=== PATIENT | male | born 1945 | race Caucasian/White ===

== ENCOUNTER 2016-12-21 10:16 | Emergency (ER) | payer OTHER ==
[~2016-12-21] VITALS: Ht 177.8 cm; Wt 86.2 kg
[2016-12-21] MEDS ORDERED: FOSRENOL500 MG PO (10:33)
[2016-12-21] MEDS ORDERED: APR50 PO (10:34)
[2016-12-21] MEDS ORDERED: SERTRALINE100 M1 PO (10:34)
[2016-12-21] MEDS ORDERED: CORE25 PO (10:35)
[2016-12-21] MEDS ORDERED: RENAL VITAMIN0.8 MG (10:35)
[2016-12-21] MEDS ORDERED: ZOF4 PO (10:36)
[2016-12-21] MEDS ORDERED: ALPHAGAN P5 M1 OD (10:37)
[2016-12-21] MEDS ORDERED: PRED FORTE1 ML (10:38)
[2016-12-21] MEDS ORDERED: NITROSTAT0.4 MG SL (10:38)
[2016-12-21] MEDS ORDERED: GLIPIZIDE5 M2 PO (10:39)
[2016-12-21] MEDS ORDERED: GABAPENTIN100 M2 PO (10:39)
[2016-12-21] MEDS ORDERED: CRESTOR40 M1 PO (10:39)
[2016-12-21] MEDS ORDERED: TERAZOSIN HCL2 MG PO (10:40)
[2016-12-21] MEDS ORDERED: FINASTERIDE5 M1 PO (10:40)
[2016-12-21] MEDS ORDERED: ASPIRIN EC325 M1 PO (10:40)
[2016-12-21] MEDS ORDERED: ISOSORBIDE MONO60 MG PO (10:40)
[2016-12-21] MEDS ORDERED: DEPLUD PO (10:41)
[2016-12-21 12:40] VITALS: BP 119/78
== END 2016-12-21 12:40 | disposition home or self-care (01) ==
LOC: ED 10:16
DX: S01.81XA Laceration without foreign body of other part of head, initial encounter (principal); S01.21XA Laceration without foreign body of nose, initial encounter; N18.9 Chronic kidney disease, unspecified; I12.9 Hypertensive chronic kidney disease with stage 1 through stage 4 chronic kidney disease, or unspecified chronic kidney disease; F03.90 Unspecified dementia, unspecified severity, without behavioral disturbance, psychotic disturbance, mood disturbance, and anxiety; Z99.2 Dependence on renal dialysis; W01.0XXA Fall on same level from slipping, tripping and stumbling without subsequent striking against object, initial encounter; Y93.89 Activity, other specified; Y99.8 Other external cause status; Y92.89 Other specified places as the place of occurrence of the external cause

== ENCOUNTER 2018-08-02 00:59 | Emergency (ER) | payer OTHER ==
[~2018-08-02] VITALS: Ht 177.8 cm; Wt 79.4 kg
[~2018-08-02 00:59] MED LIST: ALPHAGAN P5 M1 OD; APR50 PO; ASPIRIN EC325 M1 PO; CORE25 PO; CRESTOR40 M1 PO; DEPLUD PO; FINASTERIDE5 M1 PO; FOSRENOL500 MG PO; GABAPENTIN100 M2 PO; GLIPIZIDE5 M2 PO; ISOSORBIDE MONO60 MG PO; NITROSTAT0.4 MG SL; PRED FORTE1 ML; RENAL VITAMIN0.8 MG; SERTRALINE100 M1 PO; TERAZOSIN HCL2 MG PO; ZOF4 PO
[2018-08-02 01:05] VITALS: Ht 177.8 cm; Wt 79.4 kg
[2018-08-02] MEDS ORDERED: CLEOCIN HCL150 MG PO (01:47)
[2018-08-02 01:55] LABS: BASOPHIL % 0.4 % (0-2); PLATELET COUNT 133 x10^3mcL (130-400); RED CELL DISTRIBUTION WIDTH 13.1 % (11.5-14.5)
[2018-08-02 02:10] LABS: ALKALINE PHOSPHATASE 112 U/L (46-116); AST/SGOT 27 U/L (15-37); BILIRUBIN TOTAL 0.34 mg/dL (0.20-1.00); CALCIUM 8.3 mg/dL (8.5-10.1); CARBON DIOXIDE 29.6 mmol/L (21-32); CHLORIDE SERUM 97 mmol/L (98-107); GLUCOSE SERUM 99 mg/dL (74-106); POTASSIUM SERUM 3.4 mmol/L (3.5-5.1); SODIUM SERUM 132 mmol/L (136-145); TOTAL PROTEIN, SERUM 6.8 g/dL (6.4-8.2)
[2018-08-02 02:20] LABS: ALT/SGPT 20 U/L (16-63)
[2018-08-02 02:21] LABS: CK-MB < 0.5 ng/mL (0-3.6); CREATINE KINASE 208 U/L (39-308)
[2018-08-02 04:03] VITALS: BP 164/62
== END 2018-08-02 04:03 | disposition home or self-care (01) ==
LOC: ED 00:59
PROVIDERS: Emergency Medicine
DX: J11.1 Influenza due to unidentified influenza virus with other respiratory manifestations (principal); I10 Essential (primary) hypertension; F03.90 Unspecified dementia, unspecified severity, without behavioral disturbance, psychotic disturbance, mood disturbance, and anxiety; Z86.73 Personal history of transient ischemic attack (TIA), and cerebral infarction without residual deficits; Z99.2 Dependence on renal dialysis; W18.39XA Other fall on same level, initial encounter; Y93.89 Activity, other specified; Y92.89 Other specified places as the place of occurrence of the external cause; Y99.8 Other external cause status
CPT/HCPCS: 36415; 82962; 87804

== ENCOUNTER 2019-01-07 13:25 | Emergency (ER) | payer OTHER ==
[~2019-01-07] VITALS: Ht 177.8 cm; Wt 95.3 kg
[~2019-01-07 13:25] MED LIST changes: +CLEOCIN HCL150 MG PO
[2019-01-07 13:53] VITALS: Ht 177.8 cm; Wt 95.3 kg
[2019-01-07 16:17] VITALS: BP 124/75
== END 2019-01-07 16:17 | disposition home or self-care (01) ==
LOC: ED 13:25
DX: S16.1XXA Strain of muscle, fascia and tendon at neck level, initial encounter (principal); S60.222A Contusion of left hand, initial encounter; S20.212A Contusion of left front wall of thorax, initial encounter; S70.02XA Contusion of left hip, initial encounter; I10 Essential (primary) hypertension; F03.90 Unspecified dementia, unspecified severity, without behavioral disturbance, psychotic disturbance, mood disturbance, and anxiety; W18.39XA Other fall on same level, initial encounter; Y93.89 Activity, other specified; Y92.89 Other specified places as the place of occurrence of the external cause; Y99.8 Other external cause status

== ENCOUNTER 2019-03-05 10:23 | Inpatient (IN) | payer OTHER ==
[~2019-03-05] VITALS: Ht 177.8 cm; Wt 93.0 kg
--- NOTE | 2019-03-05 10:42 | NUR ---
DR. WEEKS MADE AWARE OF THE BP.
[2019-03-05 11:20] LABS: BASOPHIL % 0.4 % (0-2); PLATELET COUNT 133 x10^3mcL (130-400); RED CELL DISTRIBUTION WIDTH 14.5 % (11.5-14.5)
[2019-03-05 11:43] LABS: ALKALINE PHOSPHATASE 71 U/L (46-116); ALT/SGPT 11 U/L (16-63); AST/SGOT 5 U/L (15-37); BILIRUBIN TOTAL 0.51 mg/dL (0.20-1.00); C REACTIVE PROTEIN 8.5 mg/dL (<=0.9); CALCIUM 9.1 mg/dL (8.5-10.1); CARBON DIOXIDE 34.8 mmol/L (21-32); CHLORIDE SERUM 97 mmol/L (98-107); GLUCOSE SERUM 171 mg/dL (74-106); POTASSIUM SERUM 4.4 mmol/L (3.5-5.1); SODIUM SERUM 138 mmol/L (136-145); TOTAL PROTEIN, SERUM 7.3 g/dL (6.4-8.2)
[2019-03-05 11:44] LABS: ALBUMIN 3.1 g/dL (3.4-5.0)
[2019-03-05 11:45] LABS: CREATININE SERUM 7.8 mg/dL (0.7-1.3)
[2019-03-05 12:56] LABS: ERYTHROCYTE SED RATE 50 mm/hr (0-20)
[2019-03-05 13:27] LABS: CHOLESTEROL/HDL RATIO 2.8
--- NOTE | 2019-03-05 13:54 | NUR ---
RECEIVED REPORT FROM YAA GREENWOOD IN ED. AWAITING PATIENT ARRIVAL TO FLOOR.
--- NOTE | 2019-03-05 14:07 | NUR ---
REPORT GIVEN TO FLOOR ENVELOPE MACHINE OPERATOR HARMONY PT REMAINS STABLE UPON REPORT GIVEN IV INTACT FLUSHING WELL FAMILY AT BEDSIDE NO S/S OF DISTRESS PIC TAKEN OF RIGHT FOOT WOUND OPEN TO AIR.
--- NOTE | 2019-03-05 14:20 | NUR ---
REPORT GIVEN TO ICU ROOM 4 TIMO ARREDONDO PHOTOS COMPLETED FOR FOOT IV REMAINS INTACT TO RIGHT ARM FLUSHING WELL NO S/S OF DISTRESS BELONGING LIST COMPLETE AND WACTCH SENT WITH FAMILY VITALS REMAIN IN THE 90'S WITH NO S/S OF DISTRESS,FAMILY REMAINS AT BEDSIDE GOING UP WITH LOADING UNIT OPERATOR POWDER CHARGING AND STAFF
--- NOTE | 2019-03-05 14:34 | NUR ---
TRANSFERED TO [facility] AT THIS TIME WITH RN AND TECH
--- NOTE | 2019-03-05 14:40 | NUR ---
RECEIVED PATIENT FROM ED VIA GUERNEY ACCOMPANIED BY RN. PATIENT SLID TO BED AND VITALS TAKEN. BP 132/69, HR 67, O2 100% ON ROOM AIR, RR 10, T 98.1 NO C/O SOB AND NO DISTRESS NOTED. IV TO RAC IS PATENT AND INTACT. NO REDNESS OR PAIN. TELE LEADS APPLIED. NO C/O CHEST PAIN. PICTURES TAKEN OF RT FOOT. MRSA AND WOUND CULTURE OBTAINED. ORIENTED PATIENT TO ROOM. ALL QUESTIONS AND CONCERNS ADDRESSED.
--- NOTE | 2019-03-05 15:02 | NUR ---
DR YEAGER IN TO SEE PATIENT AND ASSESS AND DRESS WOUND.
[2019-03-05 15:17] VITALS: BP 132/54
--- NOTE | 2019-03-05 16:11 | NUR ---
ULTRASOUND IN TO SEE PATIENT.
--- NOTE | 2019-03-05 17:38 | NUR ---
PT BP ELEVATED 165/69. IN TO ADMINISTER SCHEDULED MEDICATION (SEE EMAR).
--- NOTE | 2019-03-05 19:03 | NUR ---
REPORT GIVEN TO STACIE GREENWOOD. PATIENT SLEEPING COMFORTABLY IN BED WITH ALL NEEDS MET. PATIENT ON ROOM AIR WITH NO DISTRESS NOTED. ALL QUESTIONS ADDRESSED. ALL CARES ENDORSED.
--- NOTE | 2019-03-05 19:15 | NUR ---
RECIEVED REPORT FROM TIMO ARREDONDO. NURSING UPDATES. POC DISCUSSED. RESUMED CARE OF PT. SEE SHIFT ASSESSMENT FOR ASSESSMENT.
[2019-03-05 19:36] VITALS: BP 118/51
--- NOTE | 2019-03-05 20:45 | NUR ---
DR BENÍTEZ @ BEDSIDE NURSING UPDATES. POC DISCUSSED. NO NEW ORDERS @ THIS TIME.
[2019-03-05 23:10] VITALS: BP 145/58
--- NOTE | 2019-03-06 | NUR ---
PT RESTING CALMLY IN BED @ THIS TIME. DENIES ANY CHANGES. NO ACUTE CHANGES NOTED. WILL CONT TO MONITOR.
--- NOTE | 2019-03-06 02:24 | NUR ---
PT RESTING CALMLY IN BED. NO ACUTE CHANGES. WILL CONT TO MONITOR.
[2019-03-06 03:33] VITALS: BP 127/53
--- NOTE | 2019-03-06 04:13 | NUR ---
PT USED BEDSIDE COMMODE STATING THAT HE HAD TO GO TO THE BATHROOM. PT ABLE W/ ASSISTANCE TO BEDSIDE COMMODE STABLE W/ NO ISSUE. PT VOIDED 100ML GALILEA BROWN. WILL ENDORSE.
--- NOTE | 2019-03-06 04:15 | NUR ---
PT LINENS CHANGED, BEDDING, AND CLOTHING CHANGED. PT TOLERATED WELL. WILL CONT TO MONITOR. PT COMPLIANT AND STABLE. NO ACUTE CHANGES. WILL ENDORSE.
[2019-03-06 05:14] LABS: BASOPHIL % 1.1 % (0-2); PLATELET COUNT 129 x10^3mcL (130-400); RED CELL DISTRIBUTION WIDTH 14.3 % (11.5-14.5)
[2019-03-06 05:30] LABS: CALCIUM 9.5 mg/dL (8.5-10.1); CHLORIDE SERUM 95 mmol/L (98-107); CREATININE SERUM 8.4 mg/dL (0.7-1.3); GLUCOSE SERUM 103 mg/dL (74-106); MAGNESIUM 2.8 mg/dL (1.8-2.4); PHOSPHOROUS 5.2 mg/dL (2.5-4.9); POTASSIUM SERUM 4.7 mmol/L (3.5-5.1); SODIUM SERUM 138 mmol/L (136-145)
--- NOTE | 2019-03-06 07:00 | NUR ---
REPORT RECEIVED FROM STACIE GREENWOOD. PT FOUND RESTING IN BED, BED IN LOWEST POSITION, BED WHEELS LOCKED, HOB @ 30 DEGREES. NO S/S DISTRESS. PT AWAKENS TO VOICE, ORIENTED TO SELF ONLY. HR 53, BP 125/57, RR 12, SPO2 100% ON ROOM AIR. LUNG SOUNDS CLEAR BILATERALLY, S1 S2 PRESENT ON CARDIAC AUSCULTATION, NS INFUSING TO RAC IV. IV SITE WNL. PT DENIES PAIN. WILL CONTINUE TO MONITOR.
[2019-03-06 07:54] VITALS: BP 125/57
[2019-03-06 11:54] VITALS: BP 120/44
--- NOTE | 2019-03-06 11:55 | NUR ---
PATIENT RECEIVED FROM ROGER GREENWOOD, TRANSFER FROM ICU. PATIENT WAS BROUGHT IN BY WHEELCHAIR. PATIENT ABLE TO AMBULATE FROM WHEELCHAIR TO BED WITH ASSISTANCE. PATIENT A/O X4 IN GOOD SPIRITS. NO COMPLAINT OF PAIN AT THIS TIME. PATIENT COMPLAINING OF BLURRY VISION AT THIS TIME, STATED THAT THIS HAS BEEN HAPPENING FOR WEEKS, HX OF CORNEA TRANSPLANT. PATIENT HAS DRESSING TO RIGHT FOOT, REPORT OF 4TH TOE AMPUTATION TO RIGHT FOOT, CELLULITUS TO RIGHT FOOT. IV TO RIGHT AC WITH NS AT TKO RATE, LEFT FORARM FISTULA FOR HD (T,TH,S), LIMB ALERT BRACELET IN PLACE. ORIENTED PATIENT TO CALL LIGHT SYSTEM AND INSTRUCTED TO USE CALL LIGHT IF ASSISTANCE IS NEEDED
--- NOTE | 2019-03-06 12:45 | NUR ---
ADMINSTERED MEDICATIONS PER MAR. ENCOURAGED PATIENT TO EAT LUNCH. PATIENT WAS ASSISTED TO RESTROOM BY CLIENT PROGRAM MANAGER FOR BOWEL MOVEMENT. CALL LIGHT IS WITHIN REACH OF PATIENT ON BED
--- NOTE | 2019-03-06 12:59 | NUR ---
DR YEAGER, PODIATRY HERE TO SEE PATIENT
--- NOTE | 2019-03-06 17:45 | NUR ---
ADMINISTERED MEDICAITON PER SEP. FAMILY DEPARTED FOR THE DAY. PATIENT ENCOURAGED TO EAT DINNER, STATED HE DID NOT FEEL HUNGRY
[2019-03-06 17:49] VITALS: BP 139/65
--- NOTE | 2019-03-06 19:35 | NUR ---
RECEIVED REPORT FROM AM NURSE. PT LAYING DOWN IN BED. PT AAOX4 AT THIS TIME. HX OF DEMENTIA.FOLLOW COMMANDS. ABLE TO MAKE NEEDS KNOWN. PT ON TELE#17 [address] SR. DENIES CP/PRESSURE AT THIS TIME. PEDAL PULSES WEAK TO BLE. NO EDEMA NOTED. LUNG SOUNDS CTA. BREATHING EVEN AND UNLABORED ON RA. NO SOB NOTED. NO ACUTE DISTRESS NOTED. ABD SOFT AND NONDISTEDED. ACITIVE BS X4 QUAD. DENIES N/V. ASSITED PT TO RESTROOM. HAD A EPISODE OF LOOSE STOOL. WILL MONITOR FOR DIARRHEA. ON HD. INCONTINENT TO URINE. RIGHT SIDE WEAKNESS. WOUND TO RIGHT 4RD TOE, RIGHT 4RD TOE AMPUTATION COVERED WITH DRESSING. DRESSING CDI. IV TO RAC FLUSHING WELL. SITE STEVAN FROM REDNESS AND SWELLING. BED AT LOWEST SETTING. SIDE RAILS X2 UP. CALL LIGHT WITHING REACH. WILL CONTINUE TO MONITOR.
[2019-03-06 21:10] VITALS: BP 102/44
[2019-03-07] VITALS (7 sets, daily range): BP systolic 107–142; BP diastolic 45–61
--- NOTE | 2019-03-07 00:36 | NUR ---
PT LAYING DOWN IN BED WITH EYES CLOSED. BREATHING EVEN AND UNLABORED ON RA. NO ACUTE DISTRESS NOTED. BED AT LOWEST SETING. SIDE RAILS X2 UP. CALL LIGHT WITHING REACH. WILL CONTINUE TO MONITOR.
--- NOTE | 2019-03-07 06:10 | NUR ---
PT BS 49, RECHECKED IT WAS 49. PT ASYPTOMATIC. DENIES H/A OR DIZZINESS. PRN D50 IV GIVEN PER SEP. RECHECKED BS, CURRENT BS 123. PT IN NO ACUTE DISTRESS. BREATHING EVEN AND UNLABORED ON RA. ALL NEEDS ASSESSED AND ATTENDED TO. BED AT LOWEST SETTING. SIDE RAILS X2 UP. CALL LIGHT WITHING REACH. WILL ENDORSE CARE TO AM NURSE.
[2019-03-07 06:35] LABS: BASOPHIL % 0.4 % (0-2); PLATELET COUNT 133 x10^3mcL (130-400)
[2019-03-07 06:51] LABS: RED CELL DISTRIBUTION WIDTH 14.6 % (11.5-14.5)
[2019-03-07 07:04] LABS: CALCIUM 8.8 mg/dL (8.5-10.1); CHLORIDE SERUM 97 mmol/L (98-107); GLUCOSE SERUM 130 mg/dL (74-106); MAGNESIUM 2.6 mg/dL (1.8-2.4); PHOSPHOROUS 5.6 mg/dL (2.5-4.9); POTASSIUM SERUM 4.6 mmol/L (3.5-5.1); SODIUM SERUM 138 mmol/L (136-145)
--- NOTE | 2019-03-07 08:00 | NUR ---
ABLE TO FEED SELF WITH CCHO DIET. NO ASPIRATION NOTED.
--- NOTE | 2019-03-07 08:30 | NUR ---
ASSISTED TO BATHROOM NOTED WITH UNSTEADY GAIT TO RLE, NO ANY DISTRESS NOTED, ASSISTED BACK BY MUD ANALYSIS OPERATOR.
--- NOTE | 2019-03-07 09:50 | NUR ---
AM SCHEDULED MEDS GIVEN. NO ASPIRATION NOTED. PLAN OF CARE DISCUSSED. PATIENT VERBALIZED UNDERSTANDING.
--- NOTE | 2019-03-07 15:50 | NUR ---
HEMODIALYSIS ONGOING AT BEDSIDE AT THIS TIME. DSRG TO RIGHT FOOT CHANGED BY DOCTOR DAY. PATIEN RESTING WITHOUT ANY DISTRESS NOTED AT THIS TIME.
--- NOTE | 2019-03-07 16:20 | NUR ---
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
--- NOTE | 2019-03-07 16:40 | NUR ---
WOUND CULTURE IS POSITVE FOR MORGANELLA MORGANI, DOCTOR DAY MADE AWARE. NOTED NEW ORDER FOR MERREM IV Q 12HRS AND DISCONTINUED CLEOCIN FROM SHELBY BOYD.
--- NOTE | 2019-03-07 18:19 | NUR ---
HEMODIALYSIS DONE WITH 2 LITETS NET OUPUT. DENIES PAIN OR DISCOMFORT AT THIS TIME. [facility], PATIENT TOLERATING WELL, NO ASPIRATION NOTED. V/S BP 107/50, HR 66, RR 18, O2SAT 96% ON ROOM AIR, AFEBRILE. IVPB LEVAQUIN INFUSING TO RAC IV SITE, NO LEAKING OR SWELLING TO SITE. CALL LIGHT REINSTRUCTED AND PLACED WITHIN EASY REACH. SIDERAILS UP X2 WITH BED ALARM ON.
--- NOTE | 2019-03-07 18:45 | NUR ---
PATIENT AMBULATED TO BATHROOM HAD ACCIDENT ON THE FLOOR NOTED LARGE LOOSE BM IN FRONT OF THE BATHROOM. ASSISTED TO SIT ON THE TOILET. NO ANY DISTRESS NOTED. ASSISTED BACK TO BED AFTER HAD BM. REMINDED PATIENT TO USE CALL LIGHT TO CALL FOR HELP. PATIENT VERBALIZED UNDERSTANING. BED ALARM ON. SIDERAILS UP X2.
--- NOTE | 2019-03-07 19:25 | NUR ---
PT RECEIVED A/O X4, WITH EPISODES OF FORGETFULNESS, ABLE TO MAKE NEEDS KNOWN. TELE #17, DENIES ANY CP/RPESSURE. WEAK PEDAL PULSES, NO EDEMA PRESENT. BREATHING IS EVEN AND UNLABORED ON RA, DENIES SOB, NO RESP DISTRESS NOTED. ABD SOFT AND NONDISTENDED, BOWEL TONES ACTIVE X4, DENIES N/V. VOIDS FREELY, MAY HAVE EPISODES OF URINARY INCONTINENCE, BRP WITH ASSIST. PT ON HD , TH, SAT. LAST HD TODAY, WITH 2L OUTPUT PER AM NURSE. AV SHUNT TO LFA, WITH GOOD BRUIT AND THRILL, DRSG IN PLACE, CDI. HX OF CVA WITH RT-SIDED WEAKNESS NOTED. AMBULATORY WITH ASSIST, BED ALARM ON. DRSG IN PLACE TO RT FOOT, CDI; DRSG CHANGED BY PODIATRY TEAM DURING AM SHIFT. PT DENIES HAVING ANY PAIN AT THIS TIME. IV TO RAC, PATENT AND INTACT, SITE WNL. NO ACUTE DISTRESS NOTED. BED IN LOWEST SETTING, SIDE RAILS UP X2, CALL LIGHT WITHIN REACH. WILL CONT TO MONITOR.
--- NOTE | 2019-03-08 00:52 | NUR ---
PT RESTING IN BED WITH EYES CLOSED, BUT IS EASILY AROUSABLE. BREATHING IS EVEN AND UNLABORED, NO RESP DISTRESS NOTED. PT DENIES HAVING ANY PAIN AT THIS TIME. IV INTACT, NO ACUTE DISTRESS OBSERVED. CALL LIGHT WITHIN REACH. WILL ENDORSE CARE TO AM NURSE.
--- NOTE | 2019-03-08 00:52 | NUR ---
PT RESTING IN BED WITH EYES CLOSED, BUT IS EASILY AROUSABLE. BREATHING IS EVEN AND UNLABORED, NO RESP DISTRESS NOTED. PT DENIES HAVING ANY PAIN AT THIS TIME. IV INTACT, NO ACUTE DISTRESS OBSERVED. BED ALARM ON. CALL LIGHT WITHIN REACH. WILL CONT TO MONITOR.
[2019-03-08 05:47] VITALS: BP 139/55
--- NOTE | 2019-03-08 06:19 | NUR ---
PT SLEPT WELL THROUGHOUT THE EVENING. BREATHING IS EVEN AND UNLABORED, NO RESP DISTRESS NOTED. PT DENIES HAVING ANY PAIN AT THIS TIME. NO ACUTE CHANGES ENCOUNTERED DURING SHIFT. ALL NEEDS MET AND ANTICIPATED. PT COMPLIANT WITH NURSING CARE. IV TO RFA INTACT. BED ALARM ON. CALL LIGHT WITHIN REACH. WILL ENDORSE CARE TO AM NURSE.
[2019-03-08 06:21] LABS: BASOPHIL % 0.5 % (0-2); PLATELET COUNT 143 x10^3mcL (130-400)
[2019-03-08 06:30] LABS: RED CELL DISTRIBUTION WIDTH 14.6 % (11.5-14.5)
[2019-03-08 06:45] LABS: CALCIUM 8.9 mg/dL (8.5-10.1); CARBON DIOXIDE 31.6 mmol/L (21-32); CHLORIDE SERUM 102 mmol/L (98-107); GLUCOSE SERUM 78 mg/dL (74-106); POTASSIUM SERUM 4.2 mmol/L (3.5-5.1); SODIUM SERUM 144 mmol/L (136-145)
[2019-03-08 06:57] LABS: CREATININE SERUM 6.9 mg/dL (0.7-1.3)
--- NOTE | 2019-03-08 07:05 | NUR ---
RECEIVED BEDSIDE REPORT FROM EXHIBITS CURATOR NURSE AT THIS TIME. PATIENT RESTING COMFORTABLY IN BED. NO APPARENT DISTRESS OR DISCOMFORT NOTED. BREATHING EVEN AND UNLABORED. PATIENT DENIES SHORTNESS OF BREATH. PATIENT DENIES CHEST PAIN/PRESSURE. DRESSING NOTED TO RIGHT FOOT, CDI. IV PATENT AND INTACT, SALINE LOCKED. ALL QUESTIONS AND CONCERNS ADDRESSED. ALL NEEDS ATTENDED TO. WILL CONTINUE TO MONITOR
--- NOTE | 2019-03-08 07:19 | NUR ---
PT IN NO ACUTE DISTRESSED. CONTINUITY OF CARE ENDORSED TO KEVIN GREENWOOD. ALL QUESTIONS AND CONCERNS ADDRESSED.
[2019-03-08] MEDS ORDERED: LEVAQUIN750 MG IV (09:42)
[2019-03-08 10:21] VITALS: BP 115/45
[2019-03-08 10:23] VITALS: Ht 177.8 cm; Wt 93.0 kg
--- NOTE | 2019-03-08 10:36 | NUR ---
PATIENT RECEIVED MORNING MEDICATIONS. PATIENT TOLERATED MEDICATIONS WELL. NO APPARENT ADVERSE EFFECTS NOTED. ALL NEEDS ATTENDED TO. WILL CONTINUE TO MONITOR
--- NOTE | 2019-03-08 12:00 | NUR ---
PATIENT BLOOD SUGAR 96. NO INSULIN COVERAGE REQUIRED. ALL NEEDS ATTENDED TO. WILL CONTINUE TO MONITOR
[2019-03-08 13:51] VITALS: BP 125/79
[2019-03-08 17:19] VITALS: BP 98/42
--- NOTE | 2019-03-08 19:10 | NUR ---
REPORT RECEIVED FROM DAY SHIFT RN. PATIENT WAS SEEN AND IS RESTING COMFORTABLY IN BED. A/OX2 TO PERSON AND TIME. CONFUSED. NO DISTRESS NOTED. BREATHING EVEN AND UNLABORED ON ROOM AIR. NO SOB OR RESP DISTRESS NOTED. NO C/O PAIN. DENIES CHEST PAIN/PRESSURE. IV TO THE RIGTH WRIST. SALINE LOCK. PATENT AND INTACT. NO REDNESS OR SWELLING NOTED. RIGHT FOOT DRESSING IN PLACE, CDI. NO DRAINAGE OR ODOR NOTED. KLETSEL DEHE WINTUN AND POOR VISION BILATERALLY. LFA AV SHUNT IN PLACE AND WNL. COMFORT AND SAFETY MEASURES IN PLACE. BED IS LOCKED AND IN THE LOWEST POSITION. SIDE RAILS UP X2. EDUCATED PATIENT TO CALL FOR ASSISTANCE AND TO NOT GET OUT OF BED ALONE. BED ALARM ON. CALL LIGHT IS WITHIN REACH. WILL CONTINUE TO MONITOR.
--- NOTE | 2019-03-08 19:42 | NUR ---
PATIENT RESTING COMFORTABLY IN BED AT THIS TIME. NO APPARENT DISTRESS OR DISCOMFORT NOTED. IV PATENT AND INTACT. ALL QUESTIONS AND CONCERNS ADDRESSED. ALL NEEDS ATTENDED TO. SAFETY PRECAUTIONS MAINTAINED. ENDORSED ALL CARE TO ZOOKEEPER NURSE
[2019-03-08 20:38] VITALS: BP 126/57; BP 226/57
--- NOTE | 2019-03-08 21:20 | NUR ---
GAVE PATIENT SANDWICH PER REQUEST. MADE PATIENT COMFORTABLE IN BED. NO DISTRESS NOTED. NO C/O PAIN. BREATHING EVEN AND UNLABORED. SAFETY MEASURES IN PLACE. CALL LIGHT IS WITHIN REACH. WILL CONTINUE TO MONITOR.
--- NOTE | 2019-03-09 00:46 | NUR ---
RESTING IN BED WITH EYES CLOSED. NO DISTRESS NOTED. BREATHING EVEN AND UNLABORED ON ROOM AIR. NO SOB NOTED. EVEN AND SYMMETRIC CHEST RISE AND FALL. SAFETY MEASURES IN PLACE. CALL LIGHT IS WITHIN REACH. WILL CONTINUE TO MONITOR.
[2019-03-09 05:08] VITALS: BP 135/47
--- NOTE | 2019-03-09 05:46 | NUR ---
BS 51 AND REPEATED AT 63. PATIENT DENIES S/S OF HYPOGLYCEMIA. NO DISTRESS NOTED. GAVE PATIENT APPLE JUICE X2 WITH 2 PACKETS OF SUGAR AND A SANDWICH. WILL REASSESS BS. CALL LIGHT IS WITHIN REACH. WILL CONTINUE TO MONITOR.
--- NOTE | 2019-03-09 06:12 | NUR ---
BS NOW 61 AND REPEATED 62. APPLE JUICE X2 W/ 2 SUGAR PACKETS AND SANDWICH WAS NOT EFFECTIVE. D50 ADMINISTERED PRESCRIBED. WILL REASSESS BS. NO DISTRESS NOTED. BREATHING EVEN. CALL LIGHT IS WITHIN REACH. WILL CONTINUE TO MONITOR.
--- NOTE | 2019-03-09 06:36 | NUR ---
AFTER D50, BS 209. WILL NOTIFY DR CARBAJAL. NO INSULIN GIVEN AT THIS TIME.
--- NOTE | 2019-03-09 06:41 | NUR ---
PATIENT RESTED IN LONG INTERVALS THROUGHOUT THE NIGHT. NO ACUTE CHANGES NOTED. BREATHING EVEN AND UNLABORED ON ROOM AIR. NO DISTRESS NOTED. NO C/O PAIN THROUGHOUT THE NIGHT. DENIES CHEST PAIN/PRESSURE. IV TO THE RIGHT WRIST. SALINE LOCK. PATENT AND INTACT. NO REDNESS OR SWELLING NOTED. RIGHT FOOT DRESSING, CDI. A/OX2 FORGETFUL. ALL NEEDS AND CONCERNS ADDRESSED. SAFETY MEASURES IN PLACE. CALL LIGHT IS WITHIN REACH. WILL ENDORSE CARE TO DAY SHIFT RN.
--- NOTE | 2019-03-09 07:05 | NUR ---
NOTFIED DR CARBAJAL ABOUT BS 209 AFTER THE APPLE JUICE AND D50. PER DR CARBAJAL, 3U OF REG INSULIN WAS GIVEN SQ. WILL ENDORSE CARE TO BRAVO SHIFT RN.
--- NOTE | 2019-03-09 07:25 | NUR ---
RECEIVED PT. IN BED A/A/O X3. PT. APPEARS FORGETFUL. NO SOB, NO N/V NOTED. PT. DENIES ANY PAIN AT THIS TIME. IV SITE NOTED TO R WRIST. PT. IS ON CONTACT ISOLATION FOR NIGHT CLUB MANAGER FROM R FOOT WOUND. AV SHUNT NOTED TO Junior FA. BED IN LOW POS., CALL LIGHT WITHIN REACH. SIDE RAILS UP X3.
[2019-03-09 10:00] VITALS: BP 126/41
--- NOTE | 2019-03-09 11:07 | NUR ---
HEMODIALYSIS NURSE AT BEDSIDE TO PREPARE PT. FOR HEMODIALYSIS.
--- NOTE | 2019-03-09 11:30 | NUR ---
BEDSIDE BLOOD SUGAR= 48. BLOOD SUGAR CHECK REPEATED AND NOTIFIED TO THE NURSE PRACTITIONER Denis RICCI REPEATED BLOOD SUGAR= 57. DEXTROSE 50% 1 AMP. IVP GIVEN ORDERED.
--- NOTE | 2019-03-09 12:35 | NUR ---
BLOOD SUGAR RECHECKED POST ADMINISTRATION OF DEXTROSE 50%. BEDSIDE BLOOD SUGAR = 152.
--- NOTE | 2019-03-09 14:32 | NUR ---
HEMODIALYSIS OUTPUT = 2L PER REPORT FROM HEMODIALYSIS NURSE.
--- NOTE | 2019-03-09 15:45 | NUR ---
CLEANSED OPEN WOUND AT R FOOT WITH NS. WOUND WAS COVERED WITH DRY DRESSING BEFORE BEING WRAPPED WITH KURLIX ROLL. WOUND SITE WAS THEN SECURED WITH XIMENA-WRAP. MINIMAL AMT. OF YELLOWISH DRAINAGE NOTED AT WOUND SITE. PHOTOGRAPH OF WOUND SITE TAKEN.
[2019-03-09 16:41] VITALS: BP 145/60
[2019-03-09 17:10] VITALS: BP 136/62
--- NOTE | 2019-03-09 17:25 | NUR ---
CALLED AND GAVE REPORT TO TIMO MCWILLIAMS AT [facility]. ALL QUESTIONS AND CONCERNS ADDRESSED. OJ WAS MADE AWARE THAT PT. IS ON CONTACT ISOLATION FOR MECHANICAL INTEGRITY ENGINEER WOUND SITE (R FOOT).
--- NOTE | 2019-03-09 18:00 | NUR ---
DISCHARGE INSTRUCTIONS GIVEN TO PT. WHO VERBALIZED UNDERSTANDING OF INSTRUCTIONS. PT. UNABLE TO SIGN DISCHARGE PAPER-WORK.
--- NOTE | 2019-03-09 18:45 | NUR ---
PT. IS BEING DISCHARGED IN STABLE CONDITION VIA GURNEY TRANSPORTATION. ALL BELONGINGS SENT WITH PT. UPON DISCHARGE. PT.'S HOME MED. ( ROSUVASTATIN) RETURNED TO PT. UPON DISCHARGE. ROSUVASTATIN BOTTLE WAS PLACED INSIDE PT.'S PERSONAL LUGGAGE/HAND-BAG UPON TRANSFER TO [facility].
== END 2019-03-09 18:48 | DRG 602 ==
LOC: ED 10:23 → DU 12:50 → IC 12:50 → DU 03-06 11:42 → MU 03-08 14:17
PROVIDERS: Internal Medicine; Specialist; ADMIT Internal Medicine
PROC: 5A1D70Z Performance of Urinary Filtration, Intermittent, Less than 6 Hours Per Day (ICD-10-PCS; principal; 2019-03-07)
PROC: 5A1D70Z Performance of Urinary Filtration, Intermittent, Less than 6 Hours Per Day (ICD-10-PCS; 2019-03-09)
DX: L03.115 Cellulitis of right lower limb (principal); N18.6 End stage renal disease; L97.515 Non-pressure chronic ulcer of other part of right foot with muscle involvement without evidence of necrosis; I12.0 Hypertensive chronic kidney disease with stage 5 chronic kidney disease or end stage renal disease; I69.351 Hemiplegia and hemiparesis following cerebral infarction affecting right dominant side; B96.89 Other specified bacterial agents as the cause of diseases classified elsewhere; E11.621 Type 2 diabetes mellitus with foot ulcer; E11.40 Type 2 diabetes mellitus with diabetic neuropathy, unspecified; E11.51 Type 2 diabetes mellitus with diabetic peripheral angiopathy without gangrene; E11.22 Type 2 diabetes mellitus with diabetic chronic kidney disease; M20.11 Hallux valgus (acquired), right foot; N40.0 Benign prostatic hyperplasia without lower urinary tract symptoms; F03.90 Unspecified dementia, unspecified severity, without behavioral disturbance, psychotic disturbance, mood disturbance, and anxiety; Z99.2 Dependence on renal dialysis; Z99.3 Dependence on wheelchair; Z96.652 Presence of left artificial knee joint; Z94.7 Corneal transplant status; Z87.891 Personal history of nicotine dependence; Z68.28 Body mass index [BMI] 28.0-28.9, adult; Z79.84 Long term (current) use of oral hypoglycemic drugs; Z79.82 Long term (current) use of aspirin; Z89.421 Acquired absence of other right toe(s)
CPT/HCPCS: 82962; 83880; 97116-GP; 97530-GP; G0378; J1956; J2060; J2543; J3490; J7030; Q0092

== ENCOUNTER 2019-09-18 10:03 | Emergency (ER) | payer OTHER ==
[~2019-09-18] VITALS: Ht 180.3 cm; Wt 88.5 kg
[~2019-09-18 10:03] MED LIST changes: +ASPIRIN CHILDRE81 MG PO; +CARVEDILOL ER40 MG PO; +DEPLUD; +HYDRALAZINE HCL25 MG PO; +LEVAQUIN750 MG IV; +QUETIAPINE FUMA25 M1 PO; +RENVELA800 M1 PO; +SERTRALINE H20 MG/ML PO
[2019-09-18 10:16] VITALS: Ht 180.3 cm; Wt 88.5 kg
[2019-09-18] MEDS ORDERED: DEPLUD PO (13:56)
[2019-09-18] MEDS ORDERED: HORIZANT300 MG PO (13:57)
[2019-09-18] MEDS ORDERED: ZOL100 PO (13:58)
[2019-09-18] MEDS ORDERED: MULTI-VITAMINS1 TAB PO (13:58)
[2019-09-18] MEDS ORDERED: ISOSORBIDE DINI30 M2 PO (13:59)
[2019-09-18] MEDS ORDERED: MICROZIDE12.5 MG PO (13:59)
[2019-09-18] MEDS ORDERED: TERAZOSIN HCL2 MG PO (13:59)
[2019-09-18] MEDS ORDERED: ISOSORBIDE DINI30 M2 (13:59)
[2019-09-18] MEDS ORDERED: MEDI-FIRST ASP325 MG PO (14:00)
[2019-09-18] MEDS ORDERED: COREG25 M1 (14:00)
[2019-09-18] MEDS ORDERED: ROSUVASTATIN CA20 MG PO (14:00)
[2019-09-18 14:28] VITALS: BP 150/81
== END 2019-09-18 14:54 | disposition short-term general hospital (02) ==
LOC: ED 10:03
DX: S05.31XA Ocular laceration without prolapse or loss of intraocular tissue, right eye, initial encounter (principal); S01.01XA Laceration without foreign body of scalp, initial encounter; I10 Essential (primary) hypertension; Z86.73 Personal history of transient ischemic attack (TIA), and cerebral infarction without residual deficits; Z98.890 Other specified postprocedural states; W18.39XA Other fall on same level, initial encounter; Y93.89 Activity, other specified; Y92.89 Other specified places as the place of occurrence of the external cause; Y99.8 Other external cause status